=== PATIENT | male | born 1955 | race Caucasian/White ===

== ENCOUNTER 2016-09-21 10:49 | Inpatient (IN) ==
--- NOTE | 2016-09-20 22:00 | Discharge Summary ---
<Marielean Lang - Last Filed: 09/20/16 21:58> - Discharge Diagnosis (1) Rotator cuff tear arthropathy of right shoulder Priority: Primary Status: Acute (2) HTN (hypertension) Priority: Secondary Status: Chronic Qualifiers: Hypertension type: essential hypertension Qualified Code(s): I10 - Essential (primary) hypertension (3) DMII (diabetes mellitus, type 2) Priority: Secondary Status: Chronic Qualifiers: Diabetes mellitus complication status: with unspecified complications Diabetes mellitus [employer] insulin use: unspecified [employer] insulin use status Qualified Code(s): E11.8 - Type 2 diabetes mellitus with unspecified complications (4) Obesity Priority: Secondary Status: Chronic Qualifiers: Obesity type: unspecified obesity type Obesity severity: morbid Qualified Code(s): E66.01 - Morbid (severe) obesity due to excess calories - Discharge Medications Home Medications: OxyCODONE Immed Rel [Roxicodone 5 MG] 5 - 10 mg PO Q6HR PRN #40 tablet 09/20/16 [Rx] Atorvastatin Calcium [Lipitor] 20 mg PO HS 09/21/16 [History] Hydrochlorothiazide 25 mg PO DAILY 09/21/16 [History] Metformin [Glucophage] 850 mg PO 0800 09/21/16 [History] Nebivolol HCl [Bystolic] 20 mg PO DAILY 09/21/16 [History] Quinapril HCl [Accupril] 40 mg PO DAILY 09/21/16 [History] Tamsulosin [Flomax] 0.4 mg PO DAILY 09/21/16 [History] Allergies/Adverse Reactions: Allergies No Known Allergies Allergy (Verified 09/21/16 11:20) Primary care physician: Alexis Courtney Jr, MD - Patient Status Disposition: Home, Self-Care Condition: Good - Discharge Instructions Follow Up With: Chris Song MD [Partnered Physician] - 10/01/16 1:00 pm Alexis Courtney Jr, MD [Primary Care Provider] - Additional Instructions: Discharge Instructions: Total Shoulder Please call [facility] ([phone]), your Primary Care Physician, or report to the Emergency Room if you have any of the following symptoms: Nausea, vomiting, fever greater that 101.5, swelling, chest pain, shortness of breath, increased pain/redness/drainage/odor for your incision site, numbness/ tingling, or any other concerning symptoms. ACTIVITY: Always keep your arm in the sling. Do not raise your arm away from your body. Do not use your arm to help with getting in or out of bed. No weight bearing permitted. Only perform those exercises given to you by your therapist. MEDICATIONS: Upon discharge resume your home medications. Take all the medications as prescribed. Take a stool softener if taking narcotic pain medications. Stool softeners are only effective if you drink enough fluids. Drink 6-8 glass of water or fluids a day, unless this is not allowed for another health problem. Despite using stool softeners, if you haven't had a bowel movement in 3 days, please switch to a gentle laxative. Gentle laxatives are sold over the counter. You should have a bowel movement within 24 hours, if not call the office. You will be discharged from the hospital with a prescription for pain medication. You are encouraged to decrease the use of narcotic pain medication as tolerated. Should you require a refill, please call the office. [facility] prescribes narcotic pain medication for only 4-6 weeks after surgery. If you require pain medication beyond this time period, you may be referred to your Primary Care Physician or to the Pain Clinic for further evaluation. Plan ahead for refills on pain medication as many narcotics either need to be picked up at the office or mailed. It is best to call 48-72 hours in advance of needing a prescription refill so you don't run out of medication. To help control the post-operative pain, you may take NSAIDs (Aleve,Advil, Motrin, ibuprofen, naprosyn) or Tylenol as prescribed on the bottle in addition to the pain medication. WOUND CARE: Leave the dressing on for 7 days. You may change the dressing if it becomes saturated greater than 50%. You can shower but not a tub bath or submerge your incision in water. Wash your hands with antibacterial soap, rinse and dry prior to any wound care. If you have jerrod the visiting nurse or rehab facility can remove the stapes 10-14 days after surgery and place steri -strips across the wound. Leave the steri-strips in place until they fall off on their won. You may let water from the shower run on top of the steri- stirips. If you do not have a visiting nurse or rehab facility, you will need to return to the office at 10-14 days for the jerrod to be removed. FOLLOW-UP: Please follow up with your surgeon in the orthopedic clinic, as scheduled - Hospital Course Hospital course: Mr. Partida is a 61 year old male - Time Spent with Patient Total time spent providing and/or coordinating discharge services: <Chris Song - Last Filed: 09/21/16 16:58> Date of Encounter: 09/21/16 Time of Encounter: 16:58 - Discharge Diagnosis (1) Rotator cuff tear arthropathy of right shoulder Priority: Primary Status: Acute (2) DMII (diabetes mellitus, type 2) Priority: Secondary Status: Chronic Qualifiers: Diabetes mellitus complication status: with unspecified complications Diabetes mellitus senior living insulin use: unspecified [employer] insulin use status Qualified Code(s): E11.8 - Type 2 diabetes mellitus with unspecified complications (3) HTN (hypertension) Priority: Secondary Status: Chronic Qualifiers: Hypertension type: essential hypertension Qualified Code(s): I10 - Essential (primary) hypertension (4) Obesity Priority: Secondary Status: Chronic Qualifiers: Obesity type: unspecified obesity type Obesity severity: morbid Qualified Code(s): E66.01 - Morbid (severe) obesity due to excess calories Primary care physician: Alexis Courtney Jr, MD - Patient Status Functional capacity at discharge: independent ambulation Overall status at discharge: patient is progressing back to baseline - Hospital Course Hospital course: Mr. Partida is a 61 year old male The patient had an uneventful postoperative course. They received antibiotics and physical therapy and were discharged in stable condition. There will follow -up in the office in 2 weeks. - Time Spent with Patient Total time spent providing and/or coordinating discharge services:
[2016-09-21] MEDS ORDERED: *HR* Midazolam HCl 2 MG/2 ML VIAL ONE (11:15)
[2016-09-21] MEDS ORDERED: *HR* Succinylcholine 200 MG/10 ML VIAL IVP ONE (11:15)
[2016-09-21] MEDS ORDERED: Dexamethasone 4 MG/ML VIAL ONE (11:15)
[2016-09-21] MEDS ORDERED: Ondansetron 4 MG/2 ML VIAL ONE (11:15)
[2016-09-21] MEDS ORDERED: *HR* FentaNYL (PF) 100 MCG/2 ML VIAL ONE (11:15)
[2016-09-21] MEDS ORDERED: *HR* Propofol 200 MG/20 ML VIAL IVP ONE ×2 (11:16→12:15)
[2016-09-21] MEDS ORDERED: Lidocaine 1% 20 ML MDV ID ONE (11:17)
[2016-09-21] MEDS ORDERED: Lidocaine -MPF 2% 2 ML VIAL ONE ×2 (11:17→12:15)
[2016-09-21] MEDS ORDERED: CeFAZolin Pre 3,000 MG/100 ML 3,000 MG/100 ML BAG IVPB ONE (11:17)
--- NOTE | 2016-09-21 11:21 | History & Physical Report ---
Date of Encounter: 09/21/16 Time of Encounter: 11:21 24 Hour HP Update - Instructions Instructions: If the History and Physical is less than 30 days old and was completed prior to A.M. admission and or procedure and has NOT been updated on calendar day of procedure please complete this update prior to performing procedure. - Update Patient reports changes in Medical Condition: No Changes in assessment/condition: No Changes in Medication: No Preop tests/diagnostics Reviewed: Yes Surgery Remains Indicated: Yes Consent for Planned Operative Procedure(s) Verified: Yes - Pre-Operative Checklist Preoperative Checklist Indicated: No Prophylactic Antibiotic Ordered: Yes Is VTE Prophylaxis Indicated?: Yes
[2016-09-21] MEDS ORDERED: Ringers Solution, Lactated 1,000 ML IVC SCH ×3 (11:30→14:35)
[2016-09-21] MEDS ORDERED: Famotidine 20 MG/2 ML VIAL IVP ONE (11:33)
--- NOTE | 2016-09-21 11:46 | Anesthesia Evaluation PreOp ---
Date of Encounter: 09/21/16 Time of Encounter: 11:45 - Past History Planned Operation: Rt Total Shoulder Replacement Cardiac History: HTN, Hyperlipidemia Pulmonary History: Denies Any Significant HX BRAZER RESISTANCE History: Denies Any Significant HX Other Medical History: Diabetes Type II (Accu check 137), Other (Morbid Obesity) Anesthesia History: No Prior Anesthetic Complications Alcohol Use: none Drug use: none Medications and Allergies OxyCODONE Immed Rel [Roxicodone 5 MG] 5 - 10 mg PO Q6HR PRN #40 tablet 09/20/16 [Rx] Atorvastatin Calcium [Lipitor] 20 mg PO HS 09/21/16 [History] Hydrochlorothiazide 25 mg PO DAILY 09/21/16 [History] Metformin [Glucophage] 850 mg PO 0800 09/21/16 [History] Nebivolol HCl [Bystolic] 20 mg PO DAILY 09/21/16 [History] Quinapril HCl [Accupril] 40 mg PO DAILY 09/21/16 [History] Tamsulosin [Flomax] 0.4 mg PO DAILY 09/21/16 [History] Allergies No Known Allergies Allergy (Verified 09/21/16 11:20) - Meds/Allergy Pre-op Review Medications Reviewed: Yes Allergies Reviewed: Yes Beta Blockers on Current Med List: Yes (Took Bystolic today 0800) Anesthesia Results - Labs Laboratory Tests 03/27/15 09/14/16 09/14/16 19:09 08:25 08:25 Hgb 14.3 Hct 43.3 Plt Count 195 Sodium 139 Potassium 4.0 BUN 19 POC Creatinine 0.90 - Imaging EKG: report reviewed (Bradycardia, Left [place] Deviation) Anesthesia Exam O2 Sat Height 1.85 m Height 1.85 m Height 1.85 m Weight 151.046 kg Weight 151.046 kg Weight 151.046 kg O2 Sat by Pulse Oximetry 95 O2 Sat by Pulse Oximetry 95 Vital Signs Temp Pulse Resp BP Pulse Ox 97.4 F L 92 18 138/79 95 09/21/16 11:15 09/21/16 11:15 09/21/16 11:15 09/21/16 11:15 09/21/16 11:15 Height: 6'1 Weight: 333 lbs NPO (# of Hours): MN Pain Scale: 0 - HEENT Pupil (Motor): Pupils equal, EOMI Mallampati: II Teeth: Normal Oral Opening: Greater than 3 - BRAZER RESISTANCE LOC: Oriented BRAZER RESISTANCE Motor: Normal RUE, Normal LUE, Normal RLE, Normal LLE, Normal Face BRAZER RESISTANCE Sensory: Normal: RUE, LUE, RLE, LLE, Face - Cardiac Rhythm: Regular JVD: No Carotid Bruit: No - Pulmonary Breath Sounds: bilateral Clear Respiratory Effort: Symmetrical Anesthesia Assess/Plan ASA Score: 3 (MO DM HTN) Modified B[place] Scale for Level of Consciousness: Cooperative, oriented, and tranquil Anesthetic Plan: General, Regional Monitoring Plan: Standard Monitors Recovery Plan: PACU (Discussed GA and RA, agrees to proceed)
[2016-09-21] MEDS ORDERED: ROPIVACAINE HCL/PF 0.5% 30 ML VIAL ONE (11:58)
[2016-09-21] MEDS ORDERED: Tetracaine/PF 20 MG/2 ML AMPUL SPINA ONE (11:58)
[2016-09-21] MEDS ORDERED: Bupivacaine-MPF 0.25% 10 ML VIAL ONE (12:02)
[2016-09-21] MEDS ORDERED: *HR* Midazolam HCl 5 MG/5 ML VIAL IVP ONE (12:02)
[2016-09-21] MEDS ORDERED: *HR* Promethazine 25 MG/ML VIAL IVP PRN (12:35)
[2016-09-21] MEDS ORDERED: *HR* HYDROmorphone (PF) 1 MG/ML SYRINGE IVP PRN ×2 (12:35→14:35)
--- NOTE | 2016-09-21 12:39 | Anesthesia Procedures ---
Date of Encounter: 09/21/16 Time of Encounter: 11:45 Procedures: Anesthesia - Nerve Block Procedure Date: 09/21/16 Time: 12:00 Pre-op Diagnosis: Rt Shoulder Arthropathy Surgical Procedure: Rt Total Shoulder Replacement Checklist: Correct Patient Identifier Correct side: Right Blood Thinner: No Monitor Applied: EKG, BP, Pulse Oximetry Supplemental Oxygen via Nasal Cannula (L/min): 2 Sedation: Versed (mg): 5 Indication: Post Op Analgesia Block Type: Supraclavicular Catheter placed: No Depth at skin (cm): 2 Sterile Technique: Yes Ultrasound used: Yes Anatomy identified: Yes Visual spread of Local: Yes Neuro Stimulation: No Blood on Needle Aspiration: No Smooth Injection of Local: Yes Pain with Injection of Local: No Prep: Chlorhexadine Needle: 22 x 50 mm Stimuplex Local: Tetracaine, Ropivacaine (0.5) Volume (cc): 30 Number of Attempts: 1 Complications: None/effective block Vitals: Vital Signs/O2 Sat/Glucose, Most Current Temp Pulse Resp BP Pulse Ox 09/21/16 12:19 62 18 143/88 98 09/21/16 11:20 97.4 F L 92 18 138/79 95 09/21/16 11:15 97.4 F L 92 18 138/79 95
--- NOTE | 2016-09-21 13:07 | Orthopedic Operative Note ---
Date of procedure: 09/21/16 Pre-op diagnosis: Right shoulder cuff tear arthropathy Post-op diagnosis: same Procedure: Procedure: Right Total Shoulder Replacment Reverse, biceps tenodesis Estimated blood loss: 100 cc Hardware:Arthrex large glenoid baseplate, 2 4.5 screws. 1 6.5 screw, 42 lateral glenosphere, 10 humeral stem, poly insert 3 with 6 metal Exam Under anesthesia: Full motion and no stability Procedural Notes: Grade 4 arthritic changes humeral head glenoid socket irreparable tear supraspinatus tendon. Operative procedure: The patient was brought to the operating room and placed on the operating room table. After general anesthesia was administered the operative shoulder was examined. Findings were noted. The patient was placed in the modified beachchair position. All pressure points were padded appropriately. And the head was stabilized in the neutral position. The operative extremity was prepped and draped in the sterile surgical fashion. The patient received IV antibiotics prior to skin incision. A standard deltopectoral approach was made to the operative shoulder. Incision was made to the skin and subcutaneous tissue,hemo stasis was obtained with Bovie cautery. Using careful blunt dissection the cephalic vein was identified and mobilized medially. The deltopectoral interval was developed and the clavipectoral fascia was incised. The subscap was released off the lesser tuberosity and tagged with #2 FiberWire suture. The humerus was dislocated patient noted to have irreparable tear supraspinatus tendon, and the humeral cut was made along the anatomic neck. Patient noted to have grade 4 arthritic changes humeral head. Anterior and posterior Bankart retractors were placed to expose the glenoid. Patient noted to have grade 4 arthritic changes glenoid socket. The glenoid guide was seated and the centering hole was made. It was reamed with the appropriate reamer. A large baseplate was seated and secured with (2) 4.5 screws and one 6.5 screw. The baseplate was irrigated and dried and the worry to lateral Glenosphere was seated and secured with the Her taper. The Her taper was tested and found to be secure the humerus was redislocated and prepared with the diaphyseal reamers, followed by a broaching process up to the appropriate size 10 in the patient's anatomic version. The metaphyseal reamer was then utilized. Trial reduction found the shoulder to be relocatable. Trial components were removed and drill holes were placed in the lesser tuberosity. They were filled with #5 FiberWire suture incorporating the biceps tendon. These sutures were used for a subscap repair and a biceps tenodesis. The appropriate 10 stem was impacted in place in the patient's anatomic version. Trial reduction found the shoulder to be relocatable and stable with the appropriate 6 metal 3 Niurka Trial component was removed and the 6 metal 3 Niurka was seated and secured the shoulder was reduced. The shoulder had excellent motion and excellent stability and no evidence of dislocation. The deep tissue was irrigated with pulse irrigation. The subscap was repaired incorporating the biceps tendon for biceps tenodesis and a subscap repair. The deltopectoral interval was closed with a running #1 PDS suture, subcutaneous tissue was irrigated and closed with 0 PDS suture, the skin was closed with Dermabond. The patient was placed in a sterile dressing, abduction brace and extubated. The patient was then transferred to the recovery room in stable condition. Anesthesia: AGUS Surgeon: Chris Song Girls Tennis Coach: Marielena Lang Condition: stable Disposition: PACU
[2016-09-21 13:55] LABS: Hematocrit 41.5 % (37.5-50.1); Hemoglobin 13.4 g/dL (12.9-16.9)
--- NOTE | 2016-09-21 14:15 | Anesthesia Evaluation Post Op ---
Date of Encounter: 09/21/16 Time of Encounter: 14:15 - Vital Signs Vital Signs: Vital Signs/O2 Sat, Most Current Temp Pulse Resp BP Pulse Ox 98.1 F 57 16 129/70 96 09/21/16 14:05 09/21/16 14:05 09/21/16 14:05 09/21/16 14:05 09/21/16 14:05 - Lungs Lungs: Clear Ascult./Percussion - Airway Airway: Non-obstructed - Cardiovascular Regular Rate - Mental Status Mental Status: Alert & Oriented, Answers Appropriately - Pain Pain Scale: 0 Pain Scale used: Numeric (1 - 10) - Nausea Vomiting Nausea Vomiting: Not Present - Hydration Hydration: NPO, Has not voided - Discharge PostOp Status: Transfer Patient to floor
[2016-09-21] MEDS ORDERED: D5% in Water 1,000 ML IV PRN (14:35)
[2016-09-21] MEDS ORDERED: Insulin LISPRO 300 UNITS/3 ML VIAL SQ SCH (14:35)
[2016-09-21] MEDS ORDERED: Temazepam 15 MG CAPSULE PO PRN (14:35)
[2016-09-21] MEDS ORDERED: Dextrose Gel 15 GM PO PRN ×2 (14:35)
[2016-09-21] MEDS ORDERED: Ondansetron 4 MG/2 ML VIAL IVP PRN (14:35)
[2016-09-21] MEDS ORDERED: Naloxone 0.4 MG/ML INJ IVP PRN (14:35)
[2016-09-21] MEDS ORDERED: *HR* OxyCODONE Immed Rel 5 MG TABLET PO PRN (14:35)
[2016-09-21] MEDS ORDERED: MOM Conc 10 ML UD.LIQ PO PRN (14:35)
[2016-09-21] MEDS ORDERED: Sennosides 8.6 MG TABLET PO PRN (14:35)
[2016-09-21] MEDS ORDERED: *HR* Dextrose 50 % in Water (Syg) 50 ML SYRINGE IVP PRN (14:35)
[2016-09-21] MEDS ORDERED: *HR* OxyCODONE Immed Rel 15 MG TABLET PO PRN (14:35)
[2016-09-21 16:25] VITALS: BP 115/75
[2016-09-21] MEDS ORDERED: *HR* Enoxaparin 30 MG/0.3 ML SYRINGE SQ SCH ×2 (18:00)
[2016-09-21] MEDS ORDERED: ceFAZolin 2,000 MG in D5% in Water 100 ML IVPB SCH (20:00)
[2016-09-22] MEDS ORDERED: *HR* Metformin 850 MG TABLET PO SCH (08:00)
[2016-09-22] MEDS ORDERED: Lisinopril 20 MG TABLET PO SCH (09:00)
[2016-09-22] MEDS ORDERED: hydroCHLOROthiazide 25 MG TABLET PO SCH (09:00)
== END 2016-09-21 18:15 | disposition home or self-care (01) | DRG 483 ==
LOC: SAMDAY 10:49 → 3NENU 15:06
PROVIDERS: ADMIT Orthopaedic Surgery; ATTEND Orthopaedic Surgery